=== PATIENT | female | born 1985 | race Caucasian/White ===

== ENCOUNTER 2019-10-28 18:21 | Emergency (ER) | payer OTHER ==
[2019-10-28 18:25] VITALS: TEMP 98.9
--- NOTE | 2019-10-28 18:28 | ED ---
General Adult HPI - General Source: patient Mode of arrival: ambulatory Limitations: no limitations <Dimitris Durant - Last Filed: 10/28/19 20:16> <Cong Butler - Last Filed: 10/28/19 21:50> - General Chief complaint: Abdominal Pain Stated complaint: Abd pain Time Seen by Provider: 10/28/19 18:26 - History of Present Illness Initial comments: Patient presents to the ED complaining of having waxing and waning, crampy lower abdominal pain for the past 2 days. Patient states that she has also been nauseated, and she states that she vomited once yesterday. Patient states that her abdominal pain seems to be worse while having a bowel movement and with changes in position. Patient also states that she has had mild "burning" epigastric abdominal pain at times. Patient states that her pain is currently mild, and she rates it at 2/10. Patient denies trauma or injury, fever or chills, headache, chest pain, dyspnea, dizziness, diarrhea or constipation, hematemesis, bloody or melanotic stool, dysuria/hematuria/urinary frequency/urinary symptoms, vaginal bleeding or discharge, or any other symptoms or complaints. Patient states that she is unsure of her LMP. (Dimitris Durant) - Related Data Previous Rx's Medication Instructions Recorded Ibuprofen 800 mg PO Q6HR PRN #20 tablet 10/28/19 Allergies Allergy/AdvReac Type Severity Reaction Status Date / Time No Known Allergies Allergy Verified 10/28/19 18:25 Review of Systems ROS Other: All systems not noted in ROS Statement are negative. <Dimitris Durant - Last Filed: 10/28/19 20:16> ROS Other: All systems not noted in ROS Statement are negative. <Cong Butler - Last Filed: 10/28/19 21:50> ROS Statement: Those systems with pertinent positive or pertinent negative responses have been documented in the HPI. Past Medical History Additional Past Medical History / Comment(s): hashimotos History of Any Multi-Drug Resistant Organisms: None Reported Past Surgical History: Section Past Psychological History: No Psychological Hx Reported Smoking Status: Never smoker Past Alcohol Use History: None Reported Past Drug Use History: None Reported <Dimitris Durant - Last Filed: 10/28/19 20:16> General Exam Limitations: no limitations General appearance: alert, in no apparent distress Head exam: Present: atraumatic, normocephalic Eye exam: Present: normal appearance, EOMI ENT exam: Present: mucous membranes moist Neck exam: Present: other (Trachea is in midline) Respiratory exam: Present: normal lung sounds bilaterally. Absent: respiratory distress, wheezes, rales, rhonchi Cardiovascular Exam: Present: regular rate, normal rhythm, normal heart sounds, other (Normal radial pulses bilaterally) GI/Abdominal exam: Present: soft, normal bowel sounds, other (Moderate suprapubic and right lower quadrant abdominal tenderness). Absent: distended, guarding, rebound Extremities exam: Absent: pedal edema Back exam: Absent: CVA tenderness (R), CVA tenderness (L) Neurological exam: Present: alert, oriented X3. Absent: motor sensory deficit Psychiatric exam: Present: normal affect, normal mood Skin exam: Present: warm, dry, intact, normal color <Dimitris Durant - Last Filed: 10/28/19 20:16> Course <Dimitris Durant - Last Filed: 10/28/19 20:16> Vital Signs 10/28/19 10/28/19 18:22 21:32 Temperature 98.9 F Pulse Rate 92 80 Respiratory 16 18 Rate Blood Pressure 138/84 106/65 O2 Sat by Pulse 100 99 Oximetry - Reevaluation(s) Reevaluation #1: 10/28/19 20:19 Patient's labs are fairly unremarkable. Patient is afebrile and without leukocytosis. Patient's CT scan shows findings suggestive of possible ruptured hemorrhagic cyst. Patient is awaiting her pelvic ultrasound at this time. Patient was endorsed to Dr. Butler secondary to end of my shift. Dr. Butler to follow-up on the patient's pelvic ultrasound report and to take over care of the patient at this time. (Dimitris Durant) Medical Decision Making - Lab Data Result diagrams: 10/28/19 18:43 10/28/19 18:43 - Radiology Data Radiology results: report reviewed (CT abdomen/pelvis with IV contrast: Small amount of snehal-splenic fluid or ascites, mild fluid throughout the abdominal m esentery, slightly more prominent fluid in the pelvis, possible ruptured hemorrhagic cyst, pelvic cyst that is presumed to be right ovarian in etiology, acute appendicitis felt unlikely present) <Dimitris Durant - Last Filed: 10/28/19 20:16> - Lab Data Result diagrams: 10/28/19 18:43 10/28/19 18:43 - Radiology Data Radiology results: image reviewed (Please see the complete report) <Cong Butler - Last Filed: 10/28/19 21:50> - Medical Decision Making I did discuss findings with the patient the presentation appears be consistent with a ruptured ovarian cyst/hemorrhagic cyst patient was previously evaluated by Dr. Durant. Patient be discharged with appropriate pain medication she is follow-up with her doctor return when necessary she is in agreement with this (Cong Butler) - Lab Data Lab Results 10/28/19 10/28/19 10/28/19 Range/Units 18:30 18:43 18:43 WBC 8.9 (3.8-10.6) k/uL RBC 4.39 (3.80-5.40) m/uL Hgb 12.9 (11.4-16.0) gm/dL Hct 38.3 (34.0-46.0) % MCV 87.2 (80.0-100.0) fL MCH 29.4 (25.0-35.0) pg MCHC 33.7 (31.0-37.0) g/dL RDW 12.7 (11.5-15.5) % Plt Count 243 (150-450) k/uL Neutrophils % 80 % Lymphocytes % 14 % Monocytes % 5 % Eosinophils % 0 % Basophils % 0 % Neutrophils # 7.1 (1.3-7.7) k/uL Lymphocytes # 1.3 (1.0-4.8) k/uL Monocytes # 0.4 (0-1.0) k/uL Eosinophils # 0.0 (0-0.7) k/uL Basophils # 0.0 (0-0.2) k/uL Sodium 137 (137-145) mmol/L Potassium 4.1 (3.5-5.1) mmol/L Chloride 104 (98-107) mmol/L Carbon Dioxide 24 (22-30) mmol/L Anion Gap 9 mmol/L BUN 9 (7-17) mg/dL Creatinine 0.57 (0.52-1.04) mg/dL Est GFR (CKD-EPI)AfAm >90 (>60 ml/min/1.73 sqM) Est GFR (CKD-EPI)NonAf >90 (>60 ml/min/1.73 sqM) Glucose 96 (74-99) mg/dL Calcium 9.4 (8.4-10.2) mg/dL Total Bilirubin 0.6 (0.2-1.3) mg/dL AST 29 (14-36) U/L ALT 31 (4-34) U/L Alkaline Phosphatase 55 (38-126) U/L Total Protein 7.7 (6.3-8.2) g/dL Albumin 4.7 (3.5-5.0) g/dL Lipase 156 (23-300) U/L HCG, Quant <2.4 mIU/mL Urine Color Yellow Urine Appearance Clear (Clear) Urine pH 5.0 (5.0-8.0) Ur Specific [place] 1.014 (1.001-1.035) Urine Protein Negative (Negative) Urine Glucose (UA) Negative (Negative) Urine Ketones 1+ H (Negative) Urine Blood Trace H (Negative) Urine Nitrite Negative (Negative) Urine Bilirubin Negative (Negative) Urine Urobilinogen <2.0 (<2.0) mg/dL Ur Leukocyte Esterase Negative (Negative) Urine RBC 1 (0-5) /hpf Urine WBC 2 (0-5) /hpf Ur Squamous Epith Cells <1 (0-4) /hpf Urine Bacteria Many H (None) /hpf Hyaline Casts 1 (0-2) /lpf Urine Mucus Few H (None) /hpf Urine Yeast (Budding) Occasional H (None) /hpf Disposition <Dimitris Durant - Last Filed: 10/28/19 20:16> Is patient prescribed a controlled substance at d/c from ED?: No <Cong Butler - Last Filed: 10/28/19 21:50> Clinical Impression: Abdominal pain, Vomiting, Ovarian cyst, Ovarian cyst rupture Disposition: HOME SELF-CARE Condition: Good Instructions (If sedation given, give patient instructions): Ruptured Ovarian Cyst (ED) Additional Instructions: Medication prescription sent to your preferred pharmacy Prescriptions: Ibuprofen 800 mg PO Q6HR PRN #20 tablet PRN Reason: Pain Referrals: Gordo Calderón MD [Primary Care Provider] - 1-2 days
[2019-10-28] MEDS ORDERED: ONDANSETRON 4 MG/2 ML VIAL IVP STA (18:39)
[2019-10-28] MEDS ORDERED: SODIUM CHLORIDE 0.9% 1,000 ML IV ONE (18:39)
[2019-10-28 19:05] LABS: Basophils % (A) 0 %; Eosinophils % (A) 0 %; HCT 38.3 % (34.0-46.0); HGB 12.9 gm/dL (11.4-16.0); Lymphocytes # (A) 1.3 k/uL (1.0-4.8); Lymphocytes % (A) 14 %; MCH 29.4 pg (25.0-35.0); MCHC 33.7 g/dL (31.0-37.0); MCV 87.2 fL (80.0-100.0); Mean Platelet Volume 7.7; Monocytes # (A) 0.4 k/uL (0-1.0); Monocytes % (A) 5 %; Neutrophils # (A) 7.1 k/uL (1.3-7.7); Neutrophils % (A) 80 %; Platelet Count 243 k/uL (150-450); RBC 4.39 m/uL (3.80-5.40); RDW 12.7 % (11.5-15.5); WBC 8.9 k/uL (3.8-10.6)
[2019-10-28 19:13] LABS: ALT 31 U/L (4-34); AST 29 U/L (14-36); African American GFR (CKD) >90 (>60 ml/min/1.73 sqM); Albumin 4.7 g/dL (3.5-5.0); Alkaline Phosphatase 55 U/L (38-126); Anion Gap 9 mmol/L; Blood Urea Nitrogen 9 mg/dL (7-17); Calcium 9.4 mg/dL (8.4-10.2); Carbon Dioxide 24 mmol/L (22-30); Chloride 104 mmol/L (98-107); Glucose 96 mg/dL (74-99); Non-African American GFR(CKD) >90 (>60 ml/min/1.73 sqM); Potassium 4.1 mmol/L (3.5-5.1); Sodium 137 mmol/L (137-145); Total Bilirubin 0.6 mg/dL (0.2-1.3); Total Protein 7.7 g/dL (6.3-8.2)
[2019-10-28 19:13] LABS: Appearance,Urine Clear (Clear); Bacteria,Urine Many /hpf; Bilirubin,Urine Negative (Negative); Blood,Urine Trace (Negative); Budding Yeast,Urine Occasional /hpf; Color,Urine Yellow; Glucose,Urine (UA) Negative (Negative); Hyaline Casts,Urine 1 /lpf (0-2); Ketones,Urine 1+ (Negative); Leukocyte Esterase,Urine Negative (Negative); Mucus,Urine Few /hpf; Nitrite,Urine Negative (Negative); Protein,Urine Negative (Negative); RBC,Urine 1 /hpf (0-5); Specific Gravity,Urine 1.014 (1.001-1.035); Squamous Epithelial Cell,Urine <1 /hpf (0-4); Urobilinogen,Urine <2.0 mg/dL (<2.0); WBC,Urine 2 /hpf (0-5)
[2019-10-28 19:29] LABS: HCG,Quantitative Serum <2.4 mIU/mL
--- NOTE | 2019-10-28 20:13 | CT ---
EXAMINATION TYPE: CT abdomen pelvis w con DATE OF EXAM: 10/28/2019 HISTORY: Lower abdominal pain and cramping, after eating or bowel movement. Rule out appendicitis. CT DLP: 543.8mGycm Automated Exposure Control for Dose Reduction was Utilized. CONTRAST: CT scan of the abdomen and pelvis is performed without oral but with IV Contrast, patient injected wi th 100 mL of Isovue 300. COMPARISON: None. FINDINGS: LUNG BASES: No significant abnormality is appreciated. LIVER/GB: No significant abnormality is appreciated. PANCREAS: Some generalized bulkiness or fullness to the pancreas without surrounding fat stranding. C orrelate to exclude IgG4-related diseases. SPLEEN: PeriSplenic ascites. ADRENALS: No significant abnormality is seen. KIDNEYS: No significant abnormality is seen. BOWEL: Suboptimal evaluation bowel without enteric contrast as well as patient having little intra-ab dominal fat. Stomach not greatly distended and thus suboptimally evaluated. No suspicious small or la rge bowel dilatation. Terminal ileum likely within normal limits coronal image 31. I cannot identify normal-appearing appendix with certainty but may be present extending medially from the cecum seen be st sagittal image 59. There is abnormal fluid or soft tissue inferiorly from the cecum. In addition t here is mild haziness or fluid throughout the mesentery. Small amount of fluid is seen in the left in fracolic gutter. Small to moderate amount of somewhat higher density fluid in the pelvis including cu l-de-sac. For reference coronal image 28. UTERUS/ADNEXA: Anteverted uterus. Just superior to the uterus there is a 5.0 cm low dense rounded les ion suspected right ovarian simple thin-walled cyst. Few scattered pelvic phleboliths. LYMPH NODES: No greater than 1cm abdominal or pelvic lymph nodes are appreciated. OSSEOUS STRUCTURES: No significant abnormality is seen. OTHER: No significant additional abnormality is seen. IMPRESSION: Suboptimal study as noted above. Abnormal study is present with small amount of perisplen ic fluid or ascites. There is mild fluid throughout the abdominal mesentery. Slightly more prominent fluid in the pelvis is slightly more higher density than typical raising concern for blood component, possible ruptured hemorrhagic cyst. Note is made of additional 5 cm thin-walled cyst in the pelvis j ust right of midline presumed of right ovarian etiology. Cannot entirely exclude acute appendicitis b ut felt unlikely present.
--- NOTE | 2019-10-28 21:02 | US ---
EXAMINATION TYPE: US transvag DATE OF EXAM: 10/28/2019 COMPARISON: ct earlier today CLINICAL HISTORY: lower abdominal pain. TECHNIQUE: . Transvaginal sonographic images of the pelvis were acquired. Date of LMP: 3-4 weeks ago EXAM MEASUREMENTS: Uterus: 9.2 x 3.6 x 4.2 cm Endometrial Stripe: 1.4 cm Right Ovary: 6.1 x 5.1 x 6.3 cm Left Ovary: 3.5 x 1.9 x 2.9 cm 1. Uterus: Anteverted wnl 2. Endometrium: wnl 3. Right Ovary: Cystic area visualized measuring 5.3 cm 4. Left Ovary: wnl Spectral, color and waveform doppler imaging shows good arterial and venous flow within the ovaries . 5. Bilateral Adnexa: wnl 6. Posterior cul-de-sac: Moderate amount of free fluid visualized Emergent transvaginal pelvic ultrasound shows few nabothian cysts in the cervix. Heterogeneous anteve rted uterus is redemonstrated. Posterior to the uterus there is confirmation of 5.1 x 4.3 x 5.3 cm ov al cystic lesion without internal vascularity and increased through transmission felt to be within ri ght ovary. There is confirmation of small to moderate amount of free fluid in pelvic cul-de-sac that is not completely anechoic. Normal size left ovary with peripheral follicles. IMPRESSION: Pelvic ultrasound confirms findings on CT. Small to moderate amount of free fluid in pelv is not completely anechoic cannot exclude blood product. Confirmation of 5.3 cm cystic lesion in the pelvis favored simple right ovarian cyst. Consider rupture of hemorrhagic cyst as possible etiology f or nonsimple free fluid in abdomen and pelvis on CT.
[2019-10-28 21:33] VITALS: BP 106/65; PULSE 80; RESP 18
[2019-10-28] MEDS ORDERED: KETOROLAC 30 MG/ML 1 ML VIAL IVP STA (21:39)
[2019-10-28] MEDS ORDERED: ETODOLAC 400 MG TAB PO ONE (21:53)
== END 2019-10-28 22:05 | disposition home or self-care (01) ==
LOC: EC 18:21
DX: N83.291 Other ovarian cyst, right side (principal); R11.10 Vomiting, unspecified
CPT/HCPCS: 36415; 80053; 83690; 85025; 81001; 84702; 93975; 76830; 74177; 99284; 96360; 96361 ×2; Q9967

== ENCOUNTER → 2020-01-25 | Outpatient (CLI) | payer OTHER ==
--- NOTE | 2020-01-26 07:53 | US ---
EXAMINATION TYPE: US thyroid st tissue head/neck DATE OF EXAM: 01/25/2020 COMPARISON: NONE CLINICAL HISTORY: E06.3 AUTOIMMUNE THYROIDITIS. Hashimotos GLAND SIZE: Right Lobe: 4.6 x 2.1 x 1.4 cm Overall Parenchyma: homogenous Left Lobe: 4.3 x 1.4 x 1.4 cm Overall Parenchyma: homogeneous Isthmus Thickness: .4 cm NODULES RIGHT: # of nodules measured on right: 0 LEFT: # of nodules measured on left: 0 Bilateral neck scanned, no evidence of lymphadenopathy. IMPRESSION: Unremarkable thyroid ultrasound
== END | disposition home or self-care (01) ==
LOC: RADUSWWP 15:58
PROVIDERS: ATTEND Family Medicine
DX: E06.3 Autoimmune thyroiditis (principal)
CPT/HCPCS: 76536